=== PATIENT | female | born 1975 | race American Indian/Alaskan Native ===

== ENCOUNTER 2017-06-08 01:35 | Inpatient (IN) | payer MEDICAID ==
[2017-06-08] MEDS ORDERED: LACTATED RINGERS 1,000 ML IV SCH ×2 (04:00→10:00)
[2017-06-08 04:14] LABS: Basophils % (Auto) 0.5 % (0.0-1.8); Eosinophils % (Auto) 0.9 % (0.0-4.3); Hematocrit 33.8 % (30.3-42.9); Hemoglobin 11.8 gm/dl (10.1-14.3); Mean Corpuscular HGB Conc 35 % (30-34); Mean Corpuscular Hemoglobin 29 pg (28-32); Mean Corpuscular Volume 82 fl (79-97); Red Blood Count 4.12 M/mm3 (3.65-5.03); Red Cell Distribution Width 15.4 % (13.2-15.2); White Blood Count 9.4 K/mm3 (4.5-11.0)
[2017-06-08 04:51] LABS: Platelet Count 168 K/mm3 (140-440)
[2017-06-08] MEDS ORDERED: XYLOCAINE 2% INFILTRATI ONE (09:32)
[2017-06-08] MEDS ORDERED: STADOL IV PRN (09:32)
[2017-06-08] MEDS ORDERED: BRETHINE SUB-Q PRN (09:32)
[2017-06-08] MEDS ORDERED: ePHEDrine SULFATE IV PRN (09:32)
[2017-06-08] MEDS ORDERED: PHENERGAN PO PRN ×2 (09:32→16:16)
[2017-06-08] MEDS ORDERED: ZOFRAN IV PRN ×2 (09:32→16:16)
[2017-06-08] MEDS ORDERED: BRETHINE IVP PRN (09:37)
--- NOTE | 2017-06-08 09:37 | History and Physical Report ---
History of Present Illness Date of examination: 06/08/17 Date of admission: 06/08/17 03:16 Chief complaint: Labor History of present illness: Pt is a 41 yo BF EDC 06/16/17; EGA 38 6/7 weeks presents complaining of RUC's q 4-6 mins. She received care at [facility] since 22 weeks and she see's [facility] for Multiple sclerosis. records are available and GBS is Negative. Past History Past Medical History: hematologic disorders, other (Multiple sclerosis) Past Surgical History: no surgical history Family/Genetic History: diabetes, hypertension, cancer Social history: no significant social history, single - Obstetrical History Expected Date of Delivery: 06/16/17 Actual Gestation: 38 Week(s) 6 Day(s) : 3 Medications and Allergies Allergies Allergy/AdvReac Type Severity Reaction Status Date / Time epinephrine AdvReac Seizure Verified 06/08/17 01:43 Home Medications Medication Instructions Recorded Confirmed Last Taken Type Gabapentin [Neurontin] 100 mg PO TID 08/11/15 08/14/15 3 Days Ago History ~08/11/15 Ketorolac 50 mg PO BID 08/11/15 08/14/15 3 Days Ago History ~08/11/15 Magnesium 30 mg PO QDAY 08/11/15 08/14/15 3 Days Ago History ~08/11/15 Active Meds: Active Medications Butorphanol Tartrate (Stadol) 2 mg IV Q2H PRN PRN Reason: Pain , Severe (7-10) Ephedrine Sulfate (Ephedrine Sulfate) 10 mg IV Q2M PRN PRN Reason: Hypotension Fentanyl (Sublimaze) 100 mcg IV Q2H PRN PRN Reason: Labor Pain Lactated Ringer's (Lactated Ringers) 1,000 mls @ 125 mls/hr IV DIRECT SUE Lactated Ringer's (Lactated Ringers) 1,000 mls @ 125 mls/hr IV DIRECT SUE Oxytocin/Sodium Chloride (Pitocin/Ns 20 Unit/1000ml Drip) 20 units in 1,000 mls @ 125 mls/hr IV DIRECT SUE Oxytocin/Sodium Chloride (Pitocin/Ns 30 Unit/500ml) 30 units in 500 mls @ 1 mls /hr IV TITR SUE; 1 MILLIUNITS/MIN PRN Reason: Protocol Oxytocin/Sodium Chloride (Pitocin/Ns 30 Unit/500ml) 30 units in 500 mls @ 4 mls /hr IV TITR SUE PRN Reason: Protocol Lidocaine (Xylocaine 2%) 20 ml INFILTRATI ONCE ONE Stop: 06/08/17 09:33 Mineral Oil (Mineral Oil) 30 ml PO QHS PRN PRN Reason: Constipation Ondansetron HCl (Zofran) 4 mg IV Q8H PRN PRN Reason: Nausea And Vomiting Promethazine HCl (Phenergan) 25 mg PO Q6H PRN PRN Reason: Nausea And Vomiting Terbutaline Sulfate (Brethine) 0.25 mg SUB-Q ONCE PRN PRN Reason: Hyperstimulation/Hypertonicity Terbutaline Sulfate (Brethine) 0.25 mg IVP ONCE PRN PRN Reason: Hyperstimulation/Hypertonicity Review of Systems All systems: negative - Vital Signs Vital signs: Vital Signs Temp Pulse Resp BP 98.9 F 96 H 18 108/65 06/08/17 01:53 06/08/17 01:53 06/08/17 01:53 06/08/17 01:53 Temp Pulse Resp BP Pulse Ox 98.2 F 90 20 110/67 90 06/08/17 07:21 06/08/17 08:59 06/08/17 07:21 06/08/17 08:59 06/08/17 07:15 - Physical Exam Breasts: Positive: deferred Cardiovascular: Regular rate Lungs: Positive: Clear to auscultation Abdomen: Positive: normal appearance Genitourinary (Female): Positive: normal external genitalia Vagina: Positive: normal moisture Uterus: Positive: enlarged Extremities: Positive: normal - Obstetrical FHR: category 1 Uterine Contraction Monitor Mode: External Cervical Dilatation: 5.5 Cervical Effacement Percentage: 70 station: -3 Uterine Contraction Pattern: Irregular Uterine Tone Measurement Phase: Contraction Uterine Contraction Intensity: Moderate Results Result Diagrams: 06/08/17 03:50 Abnormal lab results 06/08/17 Range/Units 03:50 MCHC 35 H (30-34) % RDW 15.4 H (13.2-15.2) % [place] % (Auto) 8.2 H (0.0-7.3) % Seg Neutrophils % 72.7 H (40.0-70.0) % All other labs normal. Assessment and Plan - Patient Problems (1) 38 weeks gestation of Onset Date: 06/08/17 Current Visit: Yes Status: Acute Plan to address problem: A: IUP @ 38 6/7 weeks in labor Multiple sclerosis AMA P: Admit to L&D for expectant vaginal delivery (2) Multiple sclerosis Onset Date: 06/08/17 Current Visit: Yes Status: Acute (3) Advanced maternal age in multigravida Onset Date: 06/08/17 Current Visit: Yes Status: Acute Qualifiers: Trimester: third trimester Qualified Code(s): O09.523 - Supervision of elderly multigravida, third trimester
[2017-06-08] MEDS ORDERED: PITOCin/NS 30 UNIT/500ML 30 UNITS/500 ML BAG IV SCH ×2 (10:00)
[2017-06-08] MEDS ORDERED: PITOCin/NS 20 UNIT/1000ML DRIP 20 UNITS/1,000 ML BAG IV SCH ×2 (10:00→17:00)
[2017-06-08] MEDS: SUBLIMAZE IV PRN ×2 (12:20→14:11)
--- NOTE | 2017-06-08 16:14 | Procedure Note ---
OB Delivery Note - Delivery Date of Delivery: 06/08/17 Surgeon: ALDAIR LORENZ Estimated blood loss: 100cc - Vaginal Delivery presentation: vertex Delivery position: OA Intrapartum events: none Delivery induction: none Delivery augmentation: rupture of membranes, pitocin Delivery monitor: external FHT, external uterine Route of delivery: Delivery placenta: spontaneous Delivery cord: nuchal cord (x1), 3 umbilical vessels Episiotomy: none Delivery laceration: none Anesthesia: intravenous Delivery comments: delivered OA and placed on Mom's chest for [id number] bonding and delayed cord clamping. - Infant A at 1 minute: 9 at 5 minutes: 9 Infant Gender: Female (3316gms)
[2017-06-08] MEDS ORDERED: MILK OF MAGNESIA PO PRN (16:16)
[2017-06-08] MEDS ORDERED: PHENERGAN PR PRN (16:16)
[2017-06-08] MEDS ORDERED: BENADRYL PO PRN (16:16)
[2017-06-08] MEDS ORDERED: TUCKS PAD TP PRN (16:16)
[2017-06-08] MEDS ORDERED: DULCOLAX PR PRN (16:16)
[2017-06-08] MEDS ORDERED: TYLENOL PO PRN (16:16)
[2017-06-08] MEDS: MOTRIN PO SCH ×2 (16:56→23:40)
[2017-06-08] MEDS ORDERED: SODIUM CHLORIDE FLUSH SYRINGE 10 ML IV NR (17:00)
[2017-06-08] MEDS: COLACE PO SCH (21:46)
[2017-06-08] MEDS: FEOSOL PO SCH (21:46)
[2017-06-08] MEDS ORDERED: MINERAL OIL PO PRN (22:00)
[2017-06-09] MEDS: MOTRIN PO SCH ×4 (05:11→23:43)
[2017-06-09] MEDS ORDERED: BOOSTRIX IM ONE ×2 (06:00→16:16)
[2017-06-09 07:06] LABS: Hematocrit 34.9 % (30.3-42.9); Hemoglobin 11.7 gm/dl (10.1-14.3)
[2017-06-09] MEDS ORDERED: LANSINOH TP PRN (10:30)
--- NOTE | 2017-06-09 10:31 | Progress Note ---
Assessment and Plan - Patient Problems (1) 38 weeks gestation of Onset Date: 06/08/17 Current Visit: Yes Status: Resolved (2) Multiple sclerosis Onset Date: 06/08/17 Current Visit: Yes Status: Chronic (3) Advanced maternal age in multigravida Onset Date: 06/08/17 Current Visit: Yes Status: Chronic Qualifiers: Trimester: third trimester Qualified Code(s): O09.523 - Supervision of elderly multigravida, third trimester (4) (normal spontaneous vaginal delivery) Onset Date: 06/09/17 Current Visit: Yes Status: Resolved Plan to address problem: A: S/P - PPD #1 Doing well P: May go home tomorrow. Subjective - Subjective Date of service: 06/09/17 Principal diagnosis: s/p - PPD #1 Interval history: Pt is feeling well without complaints. Bleeding improved. Patient reports: appetite normal, voiding normally, pain well controlled, flatus , ambulating normally [place]: doing well, nursing well Objective - Vital Signs Latest vital signs: Vital Signs Temp Pulse Resp BP BP Pulse Ox 06/09/17 08:56 98.1 F 77 18 105/61 06/09/17 05:15 97.4 F L 85 18 111/64 06/09/17 01:00 97.5 F L 78 20 106/71 06/08/17 20:43 97.7 F 85 20 116/56 06/08/17 17:55 98.8 F 86 18 118/78 98 06/08/17 17:19 92 H 117/68 06/08/17 17:04 93 H 125/69 06/08/17 16:49 109 H 125/66 06/08/17 16:35 97 H 118/59 06/08/17 16:25 98.6 F 20 06/08/17 16:15 103 H 100 06/08/17 16:10 110 H 113/61 06/08/17 16:09 102 H 126/70 06/08/17 15:10 88 134/68 06/08/17 14:39 93 H 121/68 06/08/17 14:10 83 128/74 06/08/17 13:41 98.5 F 20 06/08/17 13:40 80 124/77 06/08/17 13:09 84 106/60 06/08/17 13:06 84 107/58 06/08/17 12:10 83 118/74 06/08/17 11:40 88 117/74 06/08/17 11:34 98.6 F 20 06/08/17 11:10 82 117/65 06/08/17 10:37 88 109/70 Intake and Output 06/08/17 06/09/17 06/09/17 22:59 06:59 14:59 Intake Total 490 240 240 Output Total 1500 800 Balance -1010 -560 240 Intake: IV 50 PITOCin/NS 30 UNIT/500ML 50 30 units In 500 ml @ 4 mls/hr IV TITR SUE Rx#: [id number] Oral 200 240 Intake, Free Water 240 240 Output: Urine 1500 800 Void 1500 800 Other: Total, Intake Amount 200 240 Total, Output Amount 700 800 # Voids Void 1 1 Estimated Blood Loss 100 - Exam Breasts: Present: deferred Cardiovascular: Present: Regular rate Lungs: Present: Clear to auscultation Abdomen: Present: normal appearance Uterus: Present: normal, firm, fundal height below umbilicus Extremities: Present: normal - Labs Labs: Laboratory Tests 06/08/17 06/08/17 06/08/17 03:50 03:50 04:30 WBC 9.4 RBC 4.12 Hgb 11.8 Hct 33.8 MCV 82 MCH 29 MCHC 35 H RDW 15.4 H Plt Count 168 Lymph % (Auto) 17.7 [place] % (Auto) 8.2 H Eos % (Auto) 0.9 Baso % (Auto) 0.5 Lymph # 1.7 [place] # 0.8 Eos # 0.1 Baso # 0.0 Seg Neutrophils % 72.7 H Seg Neutrophils # 6.8 RPR Nonreactive Blood Type A POSITIVE Antibody Screen Negative 06/09/17 06:40 WBC RBC Hgb 11.7 Hct 34.9 MCV MCH MCHC RDW Plt Count Lymph % (Auto) [place] % (Auto) Eos % (Auto) Baso % (Auto) Lymph # [place] # Eos # Baso # Seg Neutrophils % Seg Neutrophils # RPR Blood Type Antibody Screen
--- NOTE | 2017-06-09 11:00 | Discharge Summary ---
Providers - Providers Date of Admission: 06/08/17 03:16 Date of discharge: 06/10/17 Attending physician: ALDAIR LORENZ Primary care physician: ALDAIR LORENZ Hospitalization Reason for admission: active labor, IUP at term Delivery: Episiotomy: none Laceration: none Other procedures: none complications: none Discharge diagnosis: IUP at term delivered [place] baby: female Hospital course: Unremarkable. Condition at discharge: Good Disposition: DC-01 TO HOME OR SELFCARE - Discharge Diagnoses (1) 38 weeks gestation of Status: Resolved (2) Multiple sclerosis Status: Chronic (3) Advanced maternal age in multigravida Status: Chronic Qualifiers: Trimester: third trimester Qualified Code(s): O09.523 - Supervision of elderly multigravida, third trimester (4) (normal spontaneous vaginal delivery) Status: Resolved Plan - Discharge Medications Prescriptions: Ibuprofen [Motrin 600 MG tab] 600 mg PO Q6H #30 tablet Vit-Fe Fumar-FA [ Vitamin] 1 each PO QDAY #30 tablet - Provider Discharge Summary Activity: routine, no sex for 6 weeks, no heavy lifting 4 weeks, no strenuous exercise Diet: routine Instructions: routine Additional instructions: [] Smoking cessation referral if applicable(refer to patient education folder for contact #) [] Refer to [facility]'s [facility] Booklet Call your doctor immediately for: * Fever > 100.5 * Heavy vaginal bleeding ( >1 pad per hour) * Severe persistent headache * Shortness of breath * Reddened, hot, painful area to leg or breast * Drainage or odor from incision. * Keep incision clean and dry at all times and follow doctor's instructions regarding bathing/showering - Follow up plan Follow up: ALDAIR LORENZ MD [Primary Care Provider] - 6 Weeks
[2017-06-09] MEDS: FEOSOL PO SCH ×2 (12:46→23:43)
[2017-06-09] MEDS: PRENATAL VITAMIN PO SCH (12:46)
[2017-06-09] MEDS: NORCO 5/325 PO PRN (14:00)
[2017-06-09] MEDS ORDERED: M-M-R II VACCINE SUB-Q ONE (16:16)
[2017-06-09] MEDS: COLACE PO SCH (23:43)
[2017-06-10] MEDS: MOTRIN PO SCH (05:19)
[2017-06-10] MEDS: NORCO 5/325 PO PRN (10:42)
[2017-06-10] MEDS: FEOSOL PO SCH (10:43)
[2017-06-10] MEDS: PRENATAL VITAMIN PO SCH (10:43)
[2017-06-10 14:55] VITALS: BP 100/70
== END 2017-06-10 14:00 | disposition home or self-care (01) | DRG 775 ==
LOC: TRG 01:35 → LD 03:16 → TRG 03:16 → OB 18:00
PROVIDERS: ADMIT Obstetrics & Gynecology; ATTEND Obstetrics & Gynecology
PROC: 10E0XZZ Delivery of Products of Conception, External Approach (ICD-10-PCS; principal; 2017-06-08)
DX: O99.354 Diseases of the nervous system complicating childbirth (principal); O69.81X0 Labor and delivery complicated by cord around neck, without compression, not applicable or unspecified; Z3A.38 38 weeks gestation of pregnancy; Z37.0 Single live birth; G35 Multiple sclerosis
CPT/HCPCS: 36415; 85014; 85018; 85025; 86592; 86850; 86900; 86901; 90471; 90715; 99211; A6250; G0463; J2590; J3010; J7120